=== PATIENT | male | born 1940 | race Caucasian/White ===

== ENCOUNTER → 2020-07-13 11:54 | Outpatient (CLI) | payer MEDICARE, SELFPAY ==
--- NOTE | 2020-07-13 12:07 | XR_ITS ---
PROCEDURE: XR HIP RT 2-3V W/PELVIS CLINICAL INDICATION: BHANU OSTEOARTHRITIS COMPARISON: CR XR HIP LT 2-3V W/PELVIS from 07/13/2020 FINDINGS: Right hip: Dysplastic changes are present involving the right femoral head with flattening and osteosclerosis with osteophyte formation medially. There is lateral subluxation of the femur with osteosclerosis noted of the acetabular roof and widening of the acetabular cup with some ill definition medially. There is some mild periarticular debris. The joint space is not narrowed. Left hip: Deformity of the femoral head with a defect in the femoral head laterally with flattening of the femoral head and mild lateral subluxation. There is decrease in the joint space with osteosclerosis of the acetabular roof and subchondral cystic changes in the acetabular roof. The acetabulum also appears widened with some ill definition inferiorly. There is an area of exostosis along the inferior aspect of the iliac wing IMPRESSION: Deformity of both femoral heads as described above with osteosclerosis of the acetabular roofs with some ill definition and widening of the acetabuli. 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 Please correlate with clinical findings. Dictated by: Rolf Andrade MD 07/14/2020 18:15 Rolf Andrade MD in [place] 07/14/2020 18:15
== END ==
PROVIDERS: PCP Nurse Practitioner Family; Visit Provider Nurse Practitioner Family
DX: M16.0 Bilateral primary osteoarthritis of hip (principal)
CPT/HCPCS: 73502

== ENCOUNTER → 2020-09-21 08:45 | Outpatient (CLI) | payer MEDICARE, SELFPAY ==
--- NOTE | 2020-09-21 08:57 | XR_ITS ---
PROCEDURE: XR CHEST 2V CLINICAL HISTORY: HX OF HIGH BLOOD PRESSURE, PRE-OPERATIVE EXAMINATION COMPARISON: No exams were available for comparison FINDINGS: The cardiomediastinal silhouette and pulmonary vascularity are within normal limits. The lungs are clear without infiltrates, suspicious nodules, or pleural effusions. There are old healed fractures of the right 7th and 8th ribs posteriorly. There are mild multilevel degenerate changes of the mid lower thoracic spine. There are mild non recent compression fractures of the thoracic spine. No acute bony abnormalities. IMPRESSION: No acute findings. Dictated by: Dr. Jose Mckeon MD 09/21/2020 16:01 Dr. Jose Mckeon MD in [facility] 09/21/2020 16:01
--- NOTE | 2020-09-21 09:26 | ECG_ITS ---
APPROVED REPORT Exam: Resting ECG HR:68 bpm ECG Measurements Heart Rate 68 AXES ID 174 P 81 QRSd 68 QRS 76 QT 380 T 38 QTc 404 Conclusion Normal sinus rhythm Poor r wave progression Abnormal ECG Electronically signed by : Slade Connor, 09/21/2020 14:08:21
[2020-09-21 10:18] LABS: Basophils # 0.1 K/mm3 (0-0.2); Basophils % 0.6 % (0.1-2.0); Eosinophils # 0.4 K/mm3 (0.0-0.4); Eosinophils % 4.9 % (0.1-12.0); Hematocrit 49.5 % (42.0-52.0); Hemoglobin 15.7 g/dL (14.1-18.0); Lymphocytes # 2.1 K/mm3 (0.7-4.5); Lymphocytes % 26.6 % (10-50); Mean Corpuscular HGB Conc 31.8 g/dL (31.8-35.4); Mean Corpuscular Hemoglobin 30.2 pg (27.0-31.2); Mean Corpuscular Volume 94.9 fl (80-94); Mean Platelet Volume 7.7 fl (7.4-10.4); Monocytes # 0.5 K/mm3 (0.1-1.0); Monocytes % 5.7 % (1.7-9.3); Neutrophils # 4.8 K/mm3 (1.8-7.8); Neutrophils % 62.1 % (37.0-80.0); Platelet Count 263 K/mm3 (142-424); Red Blood Count 5.22 M/mm3 (4.60-6.20); White Blood Count 7.8 K/mm3 (4.8-10.8)
[2020-09-21 10:26] LABS: Hemoglobin A1C 5.6 % (4.0-6.0)
[2020-09-21 10:35] LABS: Activated Partial Thrombo Time 27.6 seconds (23.6-34.0)
[2020-09-21 10:42] LABS: Chloride 102 mmol/L (98-107)
[2020-09-21 10:43] LABS: Potassium 5.5 mmoL/L (3.5-5.1); Sodium 137 mmol/L (136-145)
[2020-09-21 10:45] LABS: Alanine Aminotransferase 18 U/L (12-78); Alkaline Phosphatase 113 U/L (38-126); Anion Gap 11.5 mEq/L (5-15); Aspartate Amino Transferase 34 U/L (17-59); Bilirubin,Total 0.7 mg/dl (0.2-1.3); Blood Urea Nitrogen 28 mg/dl (9-20); Carbon Dioxide 29 mmol/L (22.0-30.0); Estimated Glomerular Filt Rate 59 ml/min (>60); GFR (African American) 71 ML/MIN (>60)
[2020-09-21 10:46] LABS: Albumin Level 4.4 g/dl (3.5-5.0); Albumin/Globulin Ratio 1.5 (1.1-1.8); Globulin 2.9 g/dL (1.3-3.2); Glucose 92 mg/dl (74-100); Total Protein,Serum 7.3 g/dl (6.3-8.2)
[2020-09-22 14:33] LABS: Prealbumin 22 mg/dL (9-32)
== END ==
PROVIDERS: PCP Nurse Practitioner Family; Visit Provider Nurse Practitioner Family
DX: Z01.818 Encounter for other preprocedural examination (principal); Z51.81 Encounter for therapeutic drug level monitoring; Z79.899 Other long term (current) drug therapy
CPT/HCPCS: 36415; 71046; 80053; 83036; 84134; 85025; 85730; 93005